=== PATIENT | male | born 1985 | race Caucasian/White ===

== ENCOUNTER 2023-02-27 11:39 | Emergency (ER) | payer SELFPAY ==
[2023-02-27] MEDS ORDERED: Ketorolac Tromethamine 60 MG/2 ML VIAL ONE (12:04)
== END 2023-02-27 13:06 | disposition home or self-care (01) ==
LOC: MADERS 11:39
DX: S93.601A Unspecified sprain of right foot, initial encounter (principal); E66.9 Obesity, unspecified; W10.8XXA Fall (on) (from) other stairs and steps, initial encounter
CPT/HCPCS: 96372; J1885